=== PATIENT | male | born 1995 | race American Indian/Alaskan Native ===

== ENCOUNTER 2018-09-20 02:12 | Emergency (ER) | payer SELFPAY ==
[2018-09-20 02:23] VITALS: BP 151/92; PULSE 96; RESP 18; TEMP 36.4; O2SAT 70
[2018-09-20] MEDS: SODIUM CHLORIDE 0.9% 1,000 ML 1000 ML IV (03:00)
[2018-09-20] MEDS: ONDANSETRON 4 MG/2 ML INJ IV (03:00)
[2018-09-20] MEDS: KETOROLAC 60 MG/2 ML VIAL 15 MG IV (03:01)
[2018-09-20 03:12] LABS: Add Manual Diff / Slide Review NO; Basophils Percent Auto 0.3 % (0-2); Hematocrit 40.5 % (41-53); Hemoglobin 13.8 g/dL (13.5-17.5); Mean Corpuscular HGB Conc 34.1 % (30-36); Mean Corpuscular Hemoglobin 28.1 PG (26-34); Mean Corpuscular Volume 82.5 fL (80-100); Neutrophils Absolute Auto 8100 /uL (3000-5900); Neutrophils Percent Auto 88.7 % (50-75); Platelet Count 254 X10^3/uL (150-400); Red Blood Cell Count 4.91 X10^6/uL (4.5-5.9); Red Cell Distribution Width 14.2 % (11.6-14.8); White Blood Cell Count 9.1 X10^3/uL (4.5-11.0)
[2018-09-20 03:13] LABS: Acetaminophen < 10 ug/mL (10-30)
[2018-09-20 03:20] LABS: Alanine Aminotransferase 34 IU/L (21-72); Albumin Globulin Ratio 1.8 (1.0-2.8); Alkaline Phosphatase 121 U/L (38-126); Aspartate Aminotransferase 27 IU/L (17-59); BUN Creatinine Ratio 12.2 (6-22); Bilirubin Total 1.1 mg/dL (0.2-1.3); Blood Urea Nitrogen 11 mg/dL (9-20); Calcium 9.6 mg/dL (8.4-10.2); Carbon Dioxide 26 mmol/L (22-32); Chloride 104 mmol/L (98-107); Estimated Glomerular Filt Rate > 60.0 mL/min (>60); Globulin 2.8 g/dL (1.7-4.1); Glucose 122 mg/dL (70-100); HEMOLYSIS < 15 (0-50); Potassium 4.2 mmol/L (3.4-5.1); Sodium 143 mmol/L (137-145); Total Protein 7.8 g/dL (6.3-8.2)
[2018-09-20 03:22] LABS: Lactate (Lactic Acid) 1.1 mmol/L (0.7-2.1)
[2018-09-20 03:24] LABS: INR 1.2 (0.9-1.3); Prothrombin Time 13.1 SECONDS (10.1-12.7)
[2018-09-20 03:54] VITALS: BP 135/92; PULSE 81; RESP 18; TEMP 36.6; O2SAT 100
--- NOTE | 2018-09-20 05:40 | ED.ABDPAIN ---
HPI - Abdominal Pain General Chief Complaint: Abdominal Pain Stated Complaint: right side tooth pain x2 days Time Seen by Provider: 09/20/18 02:20 Source: patient Mode of arrival: ambulatory Limitations: no limitations History of Present Illness HPI narrative: 23-year-old nonsmoker presents to the emergency department the chief complaint dental pain for the past day or 2. He denies any facial swelling nor fever or chills. He denies any drainage. He does state that over the course the days pain with sufficient to require the ingestion of between 8 and 10 extra-strength Tylenol. He took the 1st 2 pills at about 10:00 a.m. and the rest prescribed over the day. Additionally he took 1 ciprofloxacin was left over from a prior infection and in the aftermath began developing nausea and vomiting. He denies any other coingestion. He denies any desire to hurt himself. He states he only took one or two tylenol yesterday and does not use this medication in an ongoing fashion. MD complaint: abdominal pain Onset (ago): hour(s) Pain Consistency: constant Location: diffuse Severity: moderate Quality: cramping and aching Radiation: none Migration to: no migration Relieving factors: nothing Exacerbating factors: nothing Associated symptoms: nausea and vomiting Related Data Previous Rx's Medication Instructions Recorded ketorolac 10 mg PO Q6H PRN 2 Days tab 09/20/18 ondansetron 4 mg PO TID-QID PRN #10 tab 09/20/18 Allergies Allergy/AdvReac Type Severity Reaction Status Date / Time No Known Drug Allergies Allergy Verified 09/20/18 02:27 Review of Systems Review of Systems All systems reviewed & are unremarkable except as noted in HPI and below Constitutional Denies chills, Denies fever(s), Denies lethargy and Denies weakness Eyes Denies change in vision, Denies eye discharge, Denies irritation and Denies loss of vision ENT Ears, Nose, Mouth, and Throat: Denies change in voice, Denies neck pain and Denies sore throat Cardiovascular Denies chest pain, Denies irregular heart rhythm, Denies lightheadedness, Denies palpitations, Denies dyspnea, Denies dyspnea on exertion and Denies orthopnea Respiratory Denies cough, Denies dyspnea, Denies dyspnea on exertion and Denies wheezing Gastrointestinal Gastrointestinal: Reports abdominal pain, Denies change in bowel habits, Denies diarrhea, Reports nausea and Reports vomiting Genitourinary Denies hematuria, Denies flank pain, Denies urinary incontinence and Denies urinary urgency Musculoskeletal Denies neck pain Integumentary/Breasts Denies pruritus, Denies erythema, Denies rash and Denies wounds Neurologic Denies confusion, Denies loss of vision and Denies weakness Psychiatric Denies anxiety, Denies confusion, Denies depression, Denies homicidal ideation and Denies suicidal ideation Endocrine Denies palpitations Hematologic/Lymphatic Denies easy bruising Allergic/Immunologic Denies wheezing [facility] Social History Smoking Status: Never smoker Exam Narrative Exam Narrative: GENERAL: Pleasant 23-year-old male actively vomiting HEAD: Atraumatic. Normocephalic. No temporal or scalp tenderness. EYES: Pupils equal round and reactive. Extraocular motions intact. No scleral icterus. No injection or drainage. ENT: Nose without bleeding, purulent drainage or septal hematoma. Throat without erythema, tonsillar hypertrophy or exudate. Uvula midline. Airway patent. NECK: Trachea midline. No JVD or lymphadenopathy. Supple, nontender, no meningeal signs. CARDIOVASCULAR: Regular rate and rhythm without murmurs, gallops, or rubs. RESPIRATORY: Clear to auscultation. Breath sounds equal bilaterally. No wheezes, rales, or rhonchi. GASTROINTESTINAL: Abdomen soft, non-tender, nondistended. No hepato-splenomegaly, or palpable masses. No guarding. EXTREMITIES: No clubbing, cyanosis, or edema. No joint tenderness, effusion, or edema noted. BACK: Nontender without deformity or crepitance. No flank tenderness. NEURO: AOx3. SKIN: No rash or erythema. Initial Vital Signs Initial Vital Signs: Vital Signs Temperature 97.5 F L 09/20/18 02:23 Pulse Rate 96 H 09/20/18 02:23 Respiratory Rate 18 09/20/18 02:23 Blood Pressure 151/92 H 09/20/18 02:23 Pulse Oximetry 70 L 09/20/18 02:23 Course Orders Ordered: ED Orders 09/20/18 02:54 Acetaminophen Stat Complete Blood Count AUTO DIFF Stat Comprehensive Metabolic Panel Stat Prothrombin Time INR Stat 09/20/18 03:04 Lactate (Lactic Acid) Stat Discontinued Medications Sodium Chloride (Normal Saline 0.9%) 1,000 mls @ 1,000 mls/hr IV BOLUS ONE Stop: 09/20/18 03:27 Last Infusion: 09/20/18 03:54 Dose: 0 mls/hr Admin: 09/20/18 03:00 Dose: 1,000 mls/hr Ketorolac Tromethamine (Toradol) 15 mg IV NOW ONE Stop: 09/20/18 02:52 Last Admin: 09/20/18 03:01 Dose: 15 mg Ondansetron HCl (Zofran) 4 mg IV NOW ONE Stop: 09/20/18 02:29 Last Admin: 09/20/18 03:00 Dose: 4 mg Consultations Consultation #1: call to Poison Control. Patient very unlikely to require anything but supportive care as he barely eclipses total allowed daily amount Vital Signs - 8 hr 09/20/18 02:23 09/20/18 03:54 Temperature 97.5 F L 97.9 F Pulse Rate 96 H 81 Respiratory Rate 18 18 Blood Pressure 151/92 H 135/92 H Pulse Oximetry 70 L 100 MDM - Abdominal Pain Differential Diagnosis Differential diagnosis: Likely abdominal pain Lab Data Result diagrams: 09/20/18 02:54 09/20/18 02:54 Lab Results 09/20/18 09/20/18 09/20/18 Range/Units 02:54 02:54 02:54 WBC 9.1 (4.5-11.0) X10^3/uL RBC 4.91 (4.5-5.9) X10^6/uL Hgb 13.8 (13.5-17.5) g/dL Hct 40.5 L (41-53) % MCV 82.5 (80-100) fL MCH 28.1 (26-34) PG MCHC 34.1 (30-36) % RDW 14.2 (11.6-14.8) % Plt Count 254 (150-400) X10^3/uL Neut % (Auto) 88.7 H (50-75) % Lymph % (Auto) 7.0 L (25-40) % [place] % (Auto) 4.0 (3-14) % Eos % (Auto) 0.0 L (2-4) % Baso % (Auto) 0.3 (0-2) % Neut # (Auto) 8100 H (9233-6383) /uL PT 13.1 H (10.1-12.7) SECONDS INR 1.2 (0.9-1.3) Sodium (137-145) mmol/L Potassium (3.4-5.1) mmol/L Chloride (98-107) mmol/L Carbon Dioxide (22-32) mmol/L BUN (9-20) mg/dL Creatinine (0.66-1.25) mg/dL Estimated GFR (>60) mL/min BUN/Creatinine Ratio (6-22) Glucose (70-100) mg/dL Lactate (0.7-2.1) mmol/L Calcium (8.4-10.2) mg/dL Total Bilirubin (0.2-1.3) mg/dL AST (17-59) IU/L ALT (21-72) IU/L Alkaline Phosphatase (38-126) U/L Total Protein (6.3-8.2) g/dL Albumin (3.5-5.0) g/dL Globulin (1.7-4.1) g/dL Albumin/Globulin Ratio (1.0-2.8) Acetaminophen < 10 L (10-30) ug/mL 09/20/18 09/20/18 Range/Units 02:54 03:04 WBC (4.5-11.0) X10^3/uL RBC (4.5-5.9) X10^6/uL Hgb (13.5-17.5) g/dL Hct (41-53) % MCV (80-100) fL MCH (26-34) PG MCHC (30-36) % RDW (11.6-14.8) % Plt Count (150-400) X10^3/uL Neut % (Auto) (50-75) % Lymph % (Auto) (25-40) % [place] % (Auto) (3-14) % Eos % (Auto) (2-4) % Baso % (Auto) (0-2) % Neut # (Auto) (8827-4306) /uL PT (10.1-12.7) SECONDS INR (0.9-1.3) Sodium 143 (137-145) mmol/L Potassium 4.2 (3.4-5.1) mmol/L Chloride 104 (98-107) mmol/L Carbon Dioxide 26 (22-32) mmol/L BUN 11 (9-20) mg/dL Creatinine 0.90 (0.66-1.25) mg/dL Estimated GFR > 60.0 (>60) mL/min BUN/Creatinine Ratio 12.2 (6-22) Glucose 122 H (70-100) mg/dL Lactate 1.1 (0.7-2.1) mmol/L Calcium 9.6 (8.4-10.2) mg/dL Total Bilirubin 1.1 (0.2-1.3) mg/dL AST 27 (17-59) IU/L ALT 34 (21-72) IU/L Alkaline Phosphatase 121 (38-126) U/L Total Protein 7.8 (6.3-8.2) g/dL Albumin 5.0 (3.5-5.0) g/dL Globulin 2.8 (1.7-4.1) g/dL Albumin/Globulin Ratio 1.8 (1.0-2.8) Acetaminophen (10-30) ug/mL MDM Narrative Medical decision making narrative: Patient presents with significant dental pain in the absence obvious signs of infection since his abscess or facial swelling. He denies any fever or chills. He took over the daily recommended dose of Tylenol but has normal see him if in levels and liver enzymes. Dental block offered but patient refused Discharge Plan Departure Patient Disposition: Home Clinical Impression: Pain, dental, Accidental acetaminophen overdose Discharge Date/Time: 09/20/18 03:55 Interventions: ED Discharge Assessment Last Done: 09/20/18 03:54 Instructions: DI for Dental Pain Activity Restrictions/Additional Instructions: There is no evidence of an emergent or life threatening illness at this time, but follow up with your doctor in 1-2 days is recommended nonetheless to continue to rule out serious underlying causes of your symptoms. Please call the office for an appointment. Please return to the Emergency Department for any worsening or persistent symptoms. Please take medications as directed. Prescriptions: New ondansetron 4 mg tablet,disintegrating 4 mg PO TID-QID PRN (Reason: nausea and vomiting) Qty: 10 RF: 0 ketorolac 10 mg tablet 10 mg PO Q6H PRN (Reason: pain) 2 Days RF: 0
== END 2018-09-20 03:55 | disposition home or self-care (01) ==
PROVIDERS: Emergency Provider Emergency Medicine
DX: K08.89 Other specified disorders of teeth and supporting structures (principal); T39.1X1A Poisoning by 4-Aminophenol derivatives, accidental (unintentional), initial encounter
CPT/HCPCS: 36415; 36591; 80053; 80329; 83605; 85025; 85610; 96361; 96374; 96375; 99283; 99284; G0480; J1885; J2405

== ENCOUNTER 2018-11-04 15:39 | Emergency (ER) | payer SELFPAY ==
[2018-11-04 15:44] VITALS: BP 140/95; PULSE 79; RESP 18; TEMP 36.7; O2SAT 96
--- NOTE | 2018-11-04 16:36 | ED_ITS ---
HPI - Dental/Oral <Livier Gerber PA-C - Last Filed: 11/04/18 22:21> General Chief complaint: Dental/Oral Stated complaint: Swollen jaw Time Seen by Provider: 11/04/18 16:49 Source: patient Mode of arrival: ambulatory Limitations: no limitations History of Present Illness HPI Narrative: This 23-year-old male comes back due to recurrent dental pain. He states this is in the right 1st and 2nd molars inferiorly. He states that he had a crack repaired in these teeth last year, did okay for a while, but for some months has had persistent pain, then today the area seemed swollen and he thought a tiny bit of pus drained when he pushed on it this morning. He states that he has not had earache, sinus pain or other upper respiratory symptoms such as cough recently. He has not had any fever. He denies any other new complaints on systems review Related Data Previous Rx's Medication Instructions Recorded amoxicillin-pot clavulanate 1 tab PO Q12H #14 tab 11/04/18 [Augmentin] Allergies Allergy/AdvReac Type Severity Reaction Status Date / Time No Known Drug Allergies Allergy Verified 09/20/18 02:27 Review of Systems <Livier Gerber PA-C - Last Filed: 11/04/18 22:21> Review of Systems All systems reviewed & are unremarkable except as noted in HPI and below Exam <Livier Gerber PA-C - Last Filed: 11/04/18 22:21> Initial Vital Signs Initial Vital Signs: Vital Signs Temperature 98.1 F 11/04/18 15:44 Pulse Rate 79 11/04/18 15:44 Respiratory Rate 18 11/04/18 15:44 Blood Pressure 140/95 H 11/04/18 15:44 Pulse Oximetry 96 11/04/18 15:44 GENERAL APPEARANCE: Patient sitting comfortably, in no distress. HEAD: No sinus TTP. EYES: PERRL, EOMI. EARS: Normal auditory canals, TMS intact with normal light reflexes. ORAL CAVITY: Poor dentition, there is tenderness, mild edema and erythema along the labial surface of the right lower 1st and 2nd molars, no drainage. No tenderness or tissue changes elsewhere. THROAT: Clear. NECK/THYROID: Neck supple, full range of motion, no cervical lymphadenopathy. LUNGS: Clear to auscultation bilaterally, clear to percussion, no cough on exam. HEART: RRR without murmur, nl S1, S2, no S3 or S4. <DO Clarissa Alford Last Filed: 11/08/18 08:13> Initial Vital Signs Initial Vital Signs: Vital Signs Temperature 98.1 F 11/04/18 15:44 Pulse Rate 79 11/04/18 15:44 Respiratory Rate 18 11/04/18 15:44 Blood Pressure 140/95 H 11/04/18 15:44 Pulse Oximetry 96 11/04/18 15:44 Course <Livier Gerber PA-C - Last Filed: 11/04/18 22:21> Vital Signs - 8 hr 11/04/18 15:44 11/04/18 17:11 Temperature 98.1 F Pulse Rate 79 83 Respiratory Rate 18 18 Blood Pressure 140/95 H 136/89 Pulse Oximetry 96 97 <Shea Thrasher DO - Last Filed: 11/08/18 08:13> Vital Signs - 8 hr 11/04/18 15:44 11/04/18 17:11 Temperature 98.1 F Pulse Rate 79 83 Respiratory Rate 18 18 Blood Pressure 140/95 H 136/89 Pulse Oximetry 96 97 Discharge Plan Departure Patient Disposition: Home Clinical Impression: Gingival abscess, Chronic dental pain Discharge Date/Time: 11/04/18 17:11 Interventions: ED Discharge Assessment Last Done: 11/04/18 17:11 Instructions: DI for Tooth Abscess, DI for Dental Pain Activity Restrictions/Additional Instructions: Please call [facility] in [place] as they have free or low-cost dentists available. Please make sure you call tomorrow and let them know you were seen in the emergency room and that we have referred you. In the interim, please use ibuprofen 800 mg every 8 hr to help with pain and inflammation, and you can add Tylenol and also [id number] Orajel as needed. I have sent the antibiotic prescription to [facility] for you. Please return if you have severe swelling, new fever, or other acutely worsening symptoms in the interim Prescriptions: New amoxicillin-pot clavulanate [Augmentin] 875-125 mg tablet 1 tab PO Q12H Qty: 14 RF: 0 Referrals: [facility], [facility] [Other] <Shea Thrasher DO - Last Filed: 11/08/18 08:13> Cosign ED Attending Cosignature Attestation: I was immediately available in the department for consultation. Documentation has been reviewed. I agree with assessment and plan.
--- NOTE | 2018-11-04 16:55 | PC.NURSE ---
Patient had a cracked bottom right side molar, which was repaired 4 months ago. Was prescribed antibiotics after the procedure, but forgot them in [place]. Approx 2-3 days ago, noted swelling on the right jaw.
[2018-11-04 17:11] VITALS: BP 136/89; PULSE 83; RESP 18; O2SAT 97
== END 2018-11-04 17:11 | disposition home or self-care (01) ==
PROVIDERS: Emergency Provider Internal Medicine
DX: K05.219 Aggressive periodontitis, localized, unspecified severity (principal); K08.9 Disorder of teeth and supporting structures, unspecified
CPT/HCPCS: 99282

== ENCOUNTER 2020-01-20 21:10 | Emergency (ER) | payer SELFPAY ==
[2020-01-20 21:18] VITALS: BP 152/100; PULSE 97; RESP 93; TEMP 36.9; O2SAT 97
[2020-01-20 21:40] VITALS: BP 140/99; PULSE 95; RESP 16
--- NOTE | 2020-01-20 22:20 | ED_ITS ---
HPI - Nausea/Vomiting/Diarrhea General Chief complaint: Nausea/Vomiting/Diarrhea Stated complaint: AFTER EATING DRY HEAVING MUCUSY IN THE CHEST Time Seen by Provider: 01/20/20 22:20 Source: patient Mode of arrival: Family Vehicle Limitations: no limitations History of Present Illness HPI Narrative: This a 24-year-old male comes to the emergency department with complaint of vomiting and epigastric pain/chest pain that has been present for 2-3 days. Patient states no fevers, has felt nauseated. He has had the dry heaves. He has not really been eating food. He does been able to keep some fluids down. He denies any diarrhea constipation states he has had normal bowel movements and they have not been black or bloody. He has not had any decrease in urine output, frequency dysuria urgency and no dark urine. He denies any fevers. He denies any cough cold or congestion. He states he feels short of breath right after he vomits. He denies any other medical issues, states he has not had similar symptoms in the past. He states that food does seem to exacerbate his symptoms. And it typically starts a short period of time after trying eat. No prior surgeries, no allergies, no tobacco or alcohol. He does use marijuana but denies any other illicit. He is accompanied by his girlfriend. Related Data Previous Rx's Medication Instructions Recorded amoxicillin-pot clavulanate 1 tab PO Q12H #14 tab 11/04/18 [Augmentin] esomeprazole magnesium [Nexium] 40 mg PO DAILY #20 cap 01/21/20 Allergies Allergy/AdvReac Type Severity Reaction Status Date / Time No Known Drug Allergies Allergy Verified 09/20/18 02:27 Review of Systems Review of Systems ROS Unobtainable: All systems reviewed & are unremarkable except as noted in HPI and below Patient History Medical History Healthy adult male (Chronic) Social History Smoking Status: Never smoker Smoking Status: Never smoker alcohol intake frequency: 0-2 drinks per day Substance Use Type: marijuana Exam Narrative Exam Narrative: GENERAL: Alert and oriented x three, male, mild distress. HEENT: Head normocephalic, atraumatic, EOMI, pupils reactive, face symmetric, mi ldly dry mucous membranes NECK: Supple, full range of motion CARDIOVASCULAR: Regular rate and rhythm without murmurs, rubs or gallops. Rashes or skin changes. RESPIRATORY: Breath sounds equal bilaterally, no wheezes rales or rhonchi. ABDOMEN: Soft, nontender. Normoactive bowel sounds all 4 quadrants. No guarding or rebound, rigidity, no mass : No CVA tenderness EXTREMITIES: Normal range of motion, no clubbing or edema. Neurovascularly intact NEUROLOGICAL: Cranial nerves II through XII grossly intact. Moving all extremities SKIN: Warm, dry, no petechiae, no rashes or lesions. Initial Vital Signs Initial Vital Signs: Vital Signs Temperature 98.5 F 01/20/20 21:18 Pulse Rate 97 H 01/20/20 21:18 Respiratory Rate 93 H 01/20/20 21:18 Blood Pressure 152/100 H 01/20/20 21:18 Pulse Oximetry 97 01/20/20 21:18 Course Orders Ordered: ED Orders 01/20/20 21:24 EKG-12 Lead Stat 01/20/20 22:10 Complete Blood Count AUTO DIFF Stat Comprehensive Metabolic Panel Stat Lipase Stat 01/20/20 22:51 XR acute abdomen series Stat 01/21/20 00:24 Urinalysis and Microscopic Stat Discontinued Medications Sodium Chloride (Normal Saline 0.9%) 1,000 mls @ 1,000 mls/hr IV BOLUS ONE Stop: 01/20/20 23:50 Last Infusion: 01/21/20 01:00 Dose: 1,000 mls/hr Documented by: Admin: 01/20/20 23:20 Dose: 1,000 mls/hr Documented by: CTRGLORIA Ondansetron HCl (Zofran) 4 mg IV NOW ONE Stop: 01/20/20 22:52 Last Admin: 01/20/20 23:20 Dose: 4 mg Documented by: CTRGLORIA Ondansetron HCl (Zofran Odt Prepack) 1 bottle MISC SEEINSTR ONE Stop: 01/21/20 00:39 Last Admin: 01/21/20 00:48 Dose: 1 bottle Documented by: DEDRICK Vital Signs Vital signs: Vital Signs - 8 hr 01/20/20 21:18 01/20/20 21:40 01/20/20 22:45 Temperature 98.5 F Pulse Rate 97 H 95 H 71 Respiratory Rate 93 H 16 14 Blood Pressure 152/100 H Blood Pressure [Right Arm] 140/99 H 145/100 H Pulse Oximetry 97 99 01/21/20 00:00 01/21/20 00:53 Temperature 97.7 F 98.0 F Pulse Rate 71 77 Respiratory Rate 20 16 Blood Pressure 165/93 H Blood Pressure [Right Arm] 158/98 H Pulse Oximetry 99 100 MDM - Nausea/Vomiting/Diarrhea Lab Data Attestation: I reviewed the patient's lab results. Result diagrams: 01/20/20 22:10 01/20/20 22:10 Labs: Lab Results 01/20/20 01/20/20 01/20/20 Range/Units 22:10 22:10 23:00 WBC 7.3 (4.5-11.0) X10^3/uL RBC 5.79 (4.5-5.9) X10^6/uL Hgb 16.1 (13.5-17.5) g/dL Hct 48.0 (41-53) % MCV 82.8 (80-100) fL MCH 27.9 (26-34) PG MCHC 33.7 (30-36) % RDW 14.2 (11.6-14.8) % Plt Count 258 (150-400) X10^3/uL Neut % (Auto) 51.8 (50-75) % Lymph % (Auto) 34.3 (25-40) % [place] % (Auto) 11.7 (3-14) % Eos % (Auto) 1.3 L (2-4) % Baso % (Auto) 0.9 (0-2) % Neut # (Auto) 3800 (1573-3242) /uL Lymph # (Auto) 2500 (3170-9378) /uL [place] # (Auto) 800 (0-900) /uL Eos # (Auto) 100 (0-450) /uL Baso # (Auto) 100 (0-100) /uL Sodium 141 (137-145) mmol/L Potassium 3.9 (3.4-5.1) mmol/L Chloride 106 (98-107) mmol/L Carbon Dioxide 27 (22-32) mmol/L BUN 11 (9-20) mg/dL Creatinine 0.85 (0.66-1.25) mg/dL Estimated GFR > 60.0 (>60) mL/min BUN/Creatinine Ratio 12.9 (6-22) Glucose 104 H (70-100) mg/dL Calcium 10.0 (8.4-10.2) mg/dL Total Bilirubin 1.0 (0.2-1.3) mg/dL AST 29 (17-59) IU/L ALT 29 (<50) IU/L Alkaline Phosphatase 138 H (38-126) U/L Total Protein 9.3 H (6.3-8.2) g/dL Albumin 5.3 H (3.5-5.0) g/dL Globulin 4.0 (1.7-4.1) g/dL Albumin/Globulin Ratio 1.3 (1.0-2.8) Lipase 200 (23-300) U/L Urine Color Dark yellow Urine Appearance Clear Urine pH 6.5 (4.5-8.0) Ur Specific [place] 1.020 (1.000-1.035) Urine Protein Negative (Negative) Urine Glucose (UA) Negative (Negative) g/dL Urine Ketones Negative (NEGATIVE) Urine Occult Blood Negative (Negative) Urine Nitrate Negative (Negative) Urine Bilirubin Negative (NEGATIVE) Urine Urobilinogen 0.2 (0.2) E.U./dL Ur Leukocyte Esterase Negative (NEGATIVE) Urine RBC 0-1/hpf (0-5/HPF) Urine WBC 0-1/hpf (0-5/HPF) Ur Squamous Epith Cells 0-1 /hpf (0-5/HPF) Amorphous Sediment 1+ Urine Bacteria Occasional (0-1) (None) Urine Mucus 1+ H (Negative) Ur Culture Indicated? Cult not indicated Urine Dip Bedside Urine Glucose Negative Bedside Urine Bilirubin - Negative Bedside Urine Ketone - Negative Urine Specific [place] 1.020 Bedside Urine Occult Blood - Negative Bedside Urine pH 6.0 Bedside Urine Protein +/- 15 Bedside Urine Urobilinogen +/- 1mg Bedside Urine Nitrite - Negative Bedside Urine Leukocytes +/- 15 Esterase Imaging Data acute abd series: Attestation: I personally reviewed and interpreted this imaging study as follows: My Impression: nap, air throughout. ECG Data Attestation: I personally reviewed and interpreted this ECG as follows: Prior ECG tracings: not available for review Interpretation: Sinus rhythm right axis, rate 81 WA 142 QRS 82 and QTC of 401. ST elevation appreciated. No depression. MDM Narrative Medical decision making narrative: Patient's x-ray shows air throughout without any obstructive changes. Patient's EKG shows no acute process. CBC shows normal white count with no changes to hematocrit her hemoglobin and normal platelets. Patient's electrolytes are normal, glucose is 104 with normal LFTs except for alk-phos is 138 and normal lipase. Patient states that he is feeling better after the Zofran. His vital signs show a little bit of hypertension, heart rate is in the 70s after fluid. Discussed with patient my suspicion for cardiac cause is low, he is nontender so ultrasound was not ordered for his abdomen or right upper quadrant. Patient's alk-phos is slightly elevated but otherwise normal LFTs. We did discuss potential for ulcer as a cause of his symptoms versus other causes. Plan to give him a prepack of Zofran and have him start a PPI for course of time to see if this improves his symptoms. Discharge Plan Departure Patient Disposition: Home Clinical Impression: Atypical chest pain Vomiting Qualifiers: Vomiting type: unspecified Vomiting Intractability: non-intractable Nausea presence: with nausea Qualified Code(s): R11.2 - Nausea with vomiting, unspecified Discharge Date/Time: 01/21/20 00:53 Instructions: DI for Vomiting -- Adult Activity Restrictions/Additional Instructions: You may take Zofran 1 tablet every 6 hours as needed for nausea. You may slowly advanced your diet with clear liquids starting in the morning if you tolerate this for several hours you may start to advance more solid foods. I would recommend taking a PPI once daily for the next 2 weeks to see if this improves your symptoms. Prescription was sent to [place] [facility]. Return to the ER for fevers, lightheadedness or passing out, new or worsening chest pain, shortness of breath, abdominal pain, persistent vomiting, black or bloody stools or new or concerning symptoms Prescriptions: New esomeprazole magnesium [Nexium] 40 mg capsule,delayed release(DR/EC) 40 mg PO DAILY Qty: 20 RF: 0 No Action amoxicillin-pot clavulanate [Augmentin] 875-125 mg tablet 1 tab PO Q12H Qty: 14 RF: 0
[2020-01-20 22:45] VITALS: BP 145/100; PULSE 71; RESP 14; O2SAT 99
--- NOTE | 2020-01-20 22:51 | DI.RAD.S_ITS ---
PROCEDURE: XR ACUTE ABDOMEN SERIES INDICATIONS: vomiting, epigastric pain. TECHNIQUE: One view chest and two views of the abdomen were acquired. COMPARISON: None. FINDINGS: Surgical changes and devices: None. Chest: Lungs are abnormal with very large lung volumes. Heart size is normal. No pleural effusions. No pneumoperitoneum. Abdomen: Bowel gas pattern is normal. No suspicious calcifications. Visualized solid organ contours appear normal. Bones: No suspicious bony lesions. IMPRESSION: Large lung volumes, with no sign of intestinal obstruction or perforation. Dictated by: Kurt Badillo M.D. on 01/21/2020 at 9:02 Approved by: Kurt Badillo M.D. on 01/21/2020 at 9:04
[2020-01-20] MEDS: SODIUM CHLORIDE 0.9% 1,000 ML 1000 ML IV (23:20)
[2020-01-20] MEDS: ONDANSETRON 4 MG/2 ML INJ IV (23:20)
[2020-01-20 23:40] LABS: Add Manual Diff / Slide Review NO; Basophils Absolute Auto 100 /uL (0-100); Basophils Percent Auto 0.9 % (0-2); Eosinophils Absolute Auto 100 /uL (0-450); Eosinophils Percent Auto 1.3 % (2-4); Hemoglobin 16.1 g/dL (13.5-17.5); Lymphocytes Absolute Auto 2500 /uL (1100-4500); Lymphocytes Percent Auto 34.3 % (25-40); Mean Corpuscular HGB Conc 33.7 % (30-36); Mean Corpuscular Hemoglobin 27.9 PG (26-34); Mean Corpuscular Volume 82.8 fL (80-100); Monocytes Absolute Auto 800 /uL (0-900); Monocytes Percent Auto 11.7 % (3-14); Neutrophils Absolute Auto 3800 /uL (1500-7000); Neutrophils Percent Auto 51.8 % (50-75); Platelet Count 258 X10^3/uL (150-400); Red Blood Cell Count 5.79 X10^6/uL (4.5-5.9); Red Cell Distribution Width 14.2 % (11.6-14.8); White Blood Cell Count 7.3 X10^3/uL (4.5-11.0)
[2020-01-20 23:45] LABS: Alanine Aminotransferase 29 IU/L (<50); Albumin 5.3 g/dL (3.5-5.0); Albumin Globulin Ratio 1.3 (1.0-2.8); Alkaline Phosphatase 138 U/L (38-126); Aspartate Aminotransferase 29 IU/L (17-59); BUN Creatinine Ratio 12.9 (6-22); Blood Urea Nitrogen 11 mg/dL (9-20); Carbon Dioxide 27 mmol/L (22-32); Chloride 106 mmol/L (98-107); Estimated Glomerular Filt Rate > 60.0 mL/min (>60); Glucose 104 mg/dL (70-100); HEMOLYSIS < 15 (0-50); Lipase 200 U/L (23-300); Potassium 3.9 mmol/L (3.4-5.1); Sodium 141 mmol/L (137-145); Total Protein 9.3 g/dL (6.3-8.2)
[2020-01-21] VITALS: BP 158/98; PULSE 71; RESP 20; TEMP 36.5; O2SAT 99
[2020-01-21 00:32] LABS: Appearance Urine UA CLEAR; Bilirubin Urine UA NEGATIVE (NEGATIVE); Glucose Urine UA NEGATIVE (Negative); Ketones Urine UA NEGATIVE (NEGATIVE); Leukocyte Esterase Urine UA NEGATIVE (NEGATIVE); Nitrite Urine UA NEGATIVE (Negative); Occult Blood Urine UA NEGATIVE (Negative); Protein Urine UA NEGATIVE (Negative); Urobilinogen Urine UA 0.2 E.U./dL (0.2); pH Urine UA 6.5 (4.5-8.0)
[2020-01-21 00:33] LABS: Color Urine UA Dark Yellow
[2020-01-21 00:34] LABS: Amorphous Sediment Urine 1+; Bacteria Urine Occasional (0-1); Mucus Urine 1+ (Negative); Squamous Epithelial Cell Urine 0-1 /HPF (0-5/HPF); WBC Urine 0-1/HPF (0-5/HPF)
[2020-01-21 00:37] LABS: Culture Indicated Urine Cult Not Indicated; RBC Urine 0-1/HPF (0-5/HPF)
[2020-01-21] MEDS: ONDANSETRON 4 MG ODT PREPACK 1 BOTTLE MISC (00:48)
[2020-01-21 00:53] VITALS: BP 165/93; PULSE 77; RESP 16; TEMP 36.7; O2SAT 100
== END 2020-01-21 00:53 | disposition home or self-care (01) ==
PROVIDERS: Emergency Provider Emergency Medicine
DX: R07.89 Other chest pain (principal); R11.2 Nausea with vomiting, unspecified; I10 Essential (primary) hypertension; R10.13 Epigastric pain
CPT/HCPCS: 36415; 74022; 80053; 81001; 81003; 83690; 85025; 93005; 96361; 96374; 99284; J2405

== ENCOUNTER 2022-04-10 07:19 | Emergency (ER) | payer SELFPAY ==
[2022-04-10 08:10] VITALS: BP 159/115; PULSE 74; RESP 16; TEMP 36.4; O2SAT 98
--- NOTE | 2022-04-10 09:04 | ED.EYEPROB ---
HPI - Eye Problem General Chief complaint: Eye Problems Stated complaint: left eye irritation Time Seen by Provider: 04/10/22 09:03 Source: patient Mode of arrival: Family Vehicle History of Present Illness HPI Narrative: This is a 27-year-old male with left eye irritation slight swelling of the lower lid and some injection for the past 1-2 days. Patient states he did notice his vision is a little blurry on the left with a have him do his visual acuity but had noticed before. He denies any severe eye pain. No pain with movement of his eye. He had some crusting had a small amount drainage this morning at the corner which keeps reoccurring. He denies any prior eye issues. He has seen ophthalmology was before for checkups but does not wear contacts or normally wear glasses he has never had any interventions to his eye. He has never had issues with his eye. He states he is otherwise healthy. Denies daily medications. He is from [place] but is currently living in the [place]. Related Data Previous Rx's Medication Instructions Recorded amoxicillin 875 mg-potassium 1 tab PO Q12H dental infection #14 11/04/18 clavulanate 125 mg tablet tabs (Augmentin) esomeprazole magnesium 40 mg 40 mg PO DAILY #20 caps 01/21/20 capsule,delayed release (Nexium) polymyxin B sulfate 10,000 1 drp EYE-LEFT Q3H 7 days #10 mL 04/10/22 unit-trimethoprim 1 mg/mL eye drops (Polytrim) Allergies Allergy/AdvReac Type Severity Reaction Status Date / Time No Known Drug Allergies Allergy Verified 09/20/18 02:27 Review of Systems Review of Systems ROS Unobtainable: All systems reviewed & are unremarkable except as noted in HPI and below Patient History Medical History (Updated 04/10/22 @ 09:57 by Bre Lewis DO) Healthy adult male Family History Other Family history non-contributory Social History Smoking Status: Never smoker Smoking Status: Never smoker alcohol intake frequency: 0-2 drinks per day Substance Use Type: marijuana Exam Narrative Exam Narrative: GEN: well nourished, well appearing male, alert and oriented x 3, patient appears to be in mild distress. HEENT: Atraumatic, pupils are equal round reactive to light, extraocular movements are intact, nares are clear, TMs are clear with no fluid, there is no conjunctival pallor. Throat is clear without any exudates, erythema, tonsillar enlargement or uvular deviation Visual acuity: right 20/100, left 20/50 without correction. General: no globe trauma Eyelids: normal inspection for some mild swelling of the left lower lid, patient does have small amount of recurrent greenish drainage just at the corner, eyelids everted for exam on left. Conjunctiva/Sclera: normal inspection, no patient's conjunctiva slightly and injected on the left, Corneas: normal inspection, examined with fluroscein on left patient has some punctate uptake in the sclera but none over the cornea. No lacerations or ulcerations noted.. EOM: intact, no palsy/entrapment Pupils: PERRL, normal accomadation, pupil normal Anterior Chambers: normal inspection, no hypema Posterior: normal fundoscopic on bilaterally HEART: Regular rate and rhythm without murmur, clicks, rubs. No carotid bruits, pulses are equal in upper and lower extremities LUNGS:Lungs clear to auscultation, no wheezes, rales, crackles, chest moves symmetrically MSCL: , full range of motion, normal gait NEURO:CN 2-12 intact Initial Vital Signs Initial Vital Signs: Vital Signs Temperature 97.6 F 04/10/22 08:10 Pulse Rate 74 04/10/22 08:10 Respiratory Rate 16 04/10/22 08:10 Blood Pressure 159/115 H 04/10/22 08:10 Pulse Oximetry 98 04/10/22 08:10 Oxygen Delivery Method 04/10/22 08:10 Course Orders Ordered: Discontinued Medications Fluorescein Sodium (Fluorescein 1 Mg Strip) 1 mg EYE-BOTH NOW ONE Stop: 04/10/22 09:39 Last Admin: 04/10/22 10:03 Dose: 1 mg Documented By: LEATHA Proparacaine HCl (Proparacaine 0.5% Ophth Samia) 1 drops EYE-BOTH NOW ONE Stop: 04/10/22 09:05 Last Admin: 04/10/22 10:02 Dose: 1 drop Documented By: LEATHA Vital Signs Vital signs: Vital Signs - 8 hr 04/10/22 08:10 Temperature 97.6 F Pulse Rate 74 Respiratory Rate 16 Blood Pressure 159/115 H Pulse Oximetry 98 Oxygen Delivery Method Room Air MDM - Eye Problem MDM Narrative Medical decision making narrative: This is a 27-year-old male comes with left eye irritation has exam consistent with conjunctivitis no signs of laceration or ulceration. Patient is only mildly discomforted. Patient started on antibiotic eyedrops, return precautions all questions answered. Discharge Plan Departure Patient Disposition: Home Clinical Impression: Bacterial conjunctivitis Instructions: DI for Conjunctivitis Activity Restrictions/Additional Instructions: If you have persistent or worsening symptoms you can follow up with Ophthalmology, referral as below or return here to the emergency department. You can use cool compresses to the affected eye as frequently as you would like. Tylenol and/or ibuprofen are appropriate for any pain control. Use antibiotic eye drops as prescribed. Take these until completed. Prescription sent to [facility] Please return for rapidly worsening vision, increasing drainage, rapidly increasing pain, fevers, redness of swelling around the eye of her face that is spreading, significant decrease in her vision or other new or concerning symptoms Prescriptions: New polymyxin B sulf-trimethoprim [Polytrim] 10,000 unit- 1 mg/mL drops 1 drp EYE-LEFT Q3H 7 Days Qty: 10 0RF No Action amoxicillin-pot clavulanate [Augmentin] 875-125 mg tablet 1 tab PO Q12H Qty: 14 0RF esomeprazole magnesium [Nexium] 40 mg capsule,delayed release(DR/EC) 40 mg PO DAILY Qty: 20 0RF Visit Report Forms: Patient Portal/API
[2022-04-10] MEDS: PROPARACAINE 0.5% OPHTH SOL 1 DROPS EYE-BOTH (10:02)
[2022-04-10] MEDS: FLUORESCEIN 1 MG STRIP EYE-BOTH (10:03)
== END 2022-04-10 10:09 | disposition home or self-care (01) ==
PROVIDERS: Emergency Provider Emergency Medicine
DX: H10.9 Unspecified conjunctivitis (principal)
CPT/HCPCS: 99282

== ENCOUNTER 2023-11-16 23:38 | Emergency (ER) | payer SELFPAY ==
[2023-11-16 23:49] VITALS: BP 154/104; PULSE 55; RESP 17; TEMP 36.6; O2SAT 98; BMI 23.3
--- NOTE | 2023-11-17 00:30 | ED.GENADULT ---
HPI - General Adult General Chief complaint: Eye Problems Stated complaint: R eye irritated and red - eye drops not helping Time Seen by Provider: 11/17/23 00:07 Source: patient Mode of arrival: Ambulatory History of Present Illness HPI narrative: 28-year-old male. Does not wear contacts. Was seen here in the emergency department a couple days ago and diagnosed with conjunctivitis. Was placed on polymyxin eyedrops. He has been on them for just under 48 hours. It states that the irritation in his right eye has continued. It is not worsened but is not improved. He states he feels like there is something in his eye. Has had quite a bit of drainage. He states that his eye was crusted shut this morning. Related Data Previous Rx's Medication Instructions Recorded amoxicillin 875 mg-potassium 1 tab PO Q12H dental infection #14 11/04/18 clavulanate 125 mg tablet tabs (Augmentin) esomeprazole magnesium 40 mg 40 mg PO DAILY #20 caps 01/21/20 capsule,delayed release (Nexium) ciprofloxacin HCl 0.3 % eye drops 2 drp EYE-RIGHT Q6HR 5 days #5 mL 11/17/23 Allergies Allergy/AdvReac Type Severity Reaction Status Date / Time No Known Drug Allergies Allergy Verified 09/20/18 02:27 Review of Systems Constitutional Constitutional: Reports system reviewed and no additional complaints, except as documented Eyes Eyes: Reports system reviewed and no additional complaints, except as documented ENT Ears, Nose, Mouth, and Throat: Reports system reviewed and no additional complaints, except as documented Integumentary/Breasts Skin/Breast: Reports system reviewed and no additional complaints, except as documented Neurologic Neurologic: Reports system reviewed and no additional complaints, except as documented Patient History Medical History Healthy adult male Family History Other Family history non-contributory Social History Smoking Status: Never smoker Smoking Status: Never smoker alcohol intake frequency: 0-2 drinks per day Substance Use Type: marijuana Exam Initial Vital Signs Initial Vital Signs: Vital Signs Temperature 97.9 F 11/16/23 23:49 Pulse Rate 55 L 11/16/23 23:49 Respiratory Rate 17 11/16/23 23:49 Blood Pressure 154/104 H 11/16/23 23:49 Pulse Oximetry 98 11/16/23 23:49 Oxygen Delivery Method Room Air 11/16/23 23:49 Eyes Pupils: PERRL EOM: EOM intact bilaterally Other: Patient does have irritation to the right eye. Fluorescein was used. No ulceration/abrasions noted. No foreign body noted. Does have chemosis. Skin General: no rashes or lesions noted Course Orders Ordered: Discontinued Medications Fluorescein Sodium (Fluorescein 1 Mg Strip) 1 mg EYE-BOTH NOW ONE Stop: 11/17/23 00:11 Last Admin: 11/17/23 00:43 Dose: 1 mg Proparacaine HCl (Proparacaine 0.5% Ophth Samia) 1 drops EYE-LEFT NOW ONE Stop: 11/17/23 00:11 Last Admin: 11/17/23 00:42 Dose: 1 drop Vital Signs Vital signs: Vital Signs - 8 hr 11/16/23 23:49 Temperature 97.9 F Pulse Rate 55 L Respiratory Rate 17 Blood Pressure 154/104 H Pulse Oximetry 98 Oxygen Delivery Method Room Air Medical Decision Making MDM Narrative Medical decision making narrative: Does have symptoms that are consistent with conjunctivitis of the right eye. He has been on the antibiotic drops for just under 48 hours. I did discuss this with the patient. Discussed the possibility that he just has not been on the antibiotics for long enough for them to work. I also discussed the possibility that he needs a different antibiotic. There was no foreign body. No ulceration. Low suspicion for glaucoma based on his risk factors and history and physical. Plan will be to give him a prescription for ciprofloxacin drops. He will hold on this and continue his current antibiotics for the next 24 hours. If his symptoms do not improve that he can switch to the new antibiotics. He was given return precautions. He expressed understanding and agreement. Discharge Plan Departure Patient Disposition: Home Clinical Impression: Conjunctivitis Instructions: Conjunctivitis Activity Restrictions/Additional Instructions: I do recommend that you continue to take your current antibiotics for the next 24 hours. If your symptoms are improving at this time then do not take the new antibiotic that you were prescribed today and continue to take your current 1. If your symptoms are not improving or worsening then stop taking the current antibiotic and start taking the new 1 as directed. Return to the emergency department for new symptoms. Prescriptions: New ciprofloxacin HCl 0.3 % drops 2 drp EYE-RIGHT Q6HR 5 Days Qty: 5 0RF No Action amoxicillin-pot clavulanate [Augmentin] 875-125 mg tablet 1 tab PO Q12H Qty: 14 0RF esomeprazole magnesium [Nexium] 40 mg capsule,delayed release(DR/EC) 40 mg PO DAILY Qty: 20 0RF Stand Alone Forms: Patient Portal/API
[2023-11-17] MEDS: PROPARACAINE 0.5% OPHTH SOL 1 DROPS EYE-LEFT (00:42)
[2023-11-17] MEDS: FLUORESCEIN 1 MG STRIP EYE-BOTH (00:43)
== END 2023-11-17 00:47 | disposition home or self-care (01) ==
PROVIDERS: Emergency Provider Emergency Medicine
DX: H10.9 Unspecified conjunctivitis (principal)
CPT/HCPCS: 99282; 99283

== ENCOUNTER 2024-01-21 15:33 | Emergency (ER) | payer OTHER, SELFPAY ==
[2024-01-21 15:44] VITALS: BP 149/103; PULSE 87; RESP 16; TEMP 36.8; O2SAT 97; BMI 23.3
--- NOTE | 2024-01-21 16:31 | ED_ITS ---
HPI - Eye Problem <Vy Crockett PA-C - Last Filed: 01/21/24 20:41> General Chief complaint: Eye Problems Stated complaint: rt eye bloodshot/puffy Time Seen by Provider: 01/21/24 15:50 Source: patient Mode of arrival: Ambulatory History of Present Illness HPI Narrative: This is a 28-year-old male with history of previous conjunctivitis who presents with concern for right eye irritation and discomfort since early this morning. 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 States he has not having eye pain but woke up in the middle of the night feeling like his eye was uncomfortable and irritated and states that he looked in the mirror and noted that his eye was mildly red looking. He also acknowledges that he feels he has very poor vision on the right side he believes that this has been gradually worsening but he is unsure of the timing. He states that he has blurry vision and notes that he plays golf and has a lot of difficulty seeing the ball when it is out in the distance. He has not seen an eye doctor since pre high school. He states he has never had a prescription for glasses or contacts previously. He is also concerned today that there is very slight swelling or inflammation below his right eye again he states this is not painful but has noticed it since this morning. Denies pain with eye movements, light sensitivity, visual floaters or sudden loss of vision or vision change, headache, or any other symptoms or concerns; he states he has otherwise been in his usual state of health. Related Data Allergies Allergy/AdvReac Type Severity Reaction Status Date / Time No Known Drug Allergies Allergy Verified 01/21/24 15:43 Review of Systems <Vy Crockett PA-C - Last Filed: 01/21/24 20:41> Review of Systems Narrative: See HPI Patient History <Vy Crockett PA-C - Last Filed: 01/21/24 20:41> Medical History Healthy adult male Family History Other Family history non-contributory Social History Smoking Status: Never smoker Smoking Status: Never smoker alcohol intake frequency: 0-2 drinks per day Substance Use Type: marijuana Exam <Vy Crockett PA-C - Last Filed: 01/21/24 20:41> Narrative Exam Narrative: GENERAL: [28] year old patient appears stated age. Well-developed patient, in mild distress. HEAD: Atraumatic. Normocephalic. EYES: Pupils equal round and reactive. Extraocular motions intact. No scleral icterus. There is very subtle right-sided injection without drainage, left eye is noninjected. On limited funduscopic exam without dilation with ophthalmoscope patient appears to have a thick dark irregular appearing stripe that is brown in color, located laterally across the posterior fundus in bilateral eyes. There is no evidence of retinal detachment. After instillation 2 drops of proparacaine in in each eye ocular pressures assessed 17 on the right and 19 on the left. Visual acuity assessed unable to read (0) on the right 20/200 on the left and 20/70 bilaterally ENT: Nose without bleeding, purulent drainage. Throat without erythema, tonsillar hypertrophy or exudate. Airway patent. NECK: Trachea midline. Non tender CARDIOVASCULAR: Regular rate and rhythm without murmurs, gallops, or rubs. RESPIRATORY: Clear to auscultation. Breath sounds equal bilaterally. No wheezes, rales, or rhonchi. EXTREMITIES: No edema or joint tenderness. NEURO: AOx3. SKIN: No rash or erythema of visible areas Initial Vital Signs Initial Vital Signs: Vital Signs Temperature 98.3 F 01/21/24 15:44 Pulse Rate 87 01/21/24 15:44 Respiratory Rate 16 01/21/24 15:44 Blood Pressure 149/103 H 01/21/24 15:44 Pulse Oximetry 97 01/21/24 15:44 Oxygen Delivery Method Room Air 01/21/24 15:44 <Bre Emmanuel MD - Last Filed: 01/23/24 07:17> Initial Vital Signs Initial Vital Signs: Vital Signs Temperature 98.3 F 01/21/24 15:44 Pulse Rate 87 01/21/24 15:44 Respiratory Rate 16 01/21/24 15:44 Blood Pressure 149/103 H 01/21/24 15:44 Pulse Oximetry 97 01/21/24 15:44 Oxygen Delivery Method Room Air 01/21/24 15:44 Course <Vy Crockett PA-C - Last Filed: 01/21/24 20:41> Course Course Narrative: Did talk to attending physician Dr. Emmanuel about this patient given my concern for his significant vision change in the last 2 months and an in ability to read with his right eye currently as well as his funduscopic exam--which is nonspecific but atypical. She recommends reaching out to [facility] to run it by them. Did try calling the eye clinic/composition weatherboard installer here at [facility] unfortunately they are already closed for the day. [address] Bustamante composition weatherboard installer at [facility] regarding this patient and he does feel it is reasonable to have him have close outpatient follow-up ideally in the next week to further evaluate his fairly rapid vision loss. But does not recommend any other emergent care or treatment at this time does recommend lubricating eyedrops 4 times daily. Their clinic will reach out to the patient also in case patient is unable to get into see an composition weatherboard installer locally. We discussed fluorescein exam however this is deferred given patient's eye exam today and no concern for foreign body or corneal abnormality. 1806 Orders Ordered: Discontinued Medications Proparacaine HCl (Proparacaine 0.5% Ophth Samia) 1 drops EYE-BOTH NOW ONE Stop: 01/21/24 16:58 Last Admin: 01/21/24 17:00 Dose: 1 drop Documented By: ESTEFANY Tetracaine HCl (Tetracaine 0.5% Ophth Drops 4 Ml) 2 drops EYE-BOTH NOW ONE Stop: 01/21/24 16:57 Vital Signs Vital signs: Vital Signs - 8 hr 01/21/24 15:44 Temperature 98.3 F Pulse Rate 87 Respiratory Rate 16 Blood Pressure 149/103 H Pulse Oximetry 97 Oxygen Delivery Method Room Air <Bre Emmanuel MD - Last Filed: 01/23/24 07:17> Orders Ordered: Discontinued Medications Proparacaine HCl (Proparacaine 0.5% Ophth Samia) 1 drops EYE-BOTH NOW ONE Stop: 01/21/24 16:58 Last Admin: 01/21/24 17:00 Dose: 1 drop Documented By: RL Tetracaine HCl (Tetracaine 0.5% Ophth Drops 4 Ml) 2 drops EYE-BOTH NOW ONE Stop: 01/21/24 16:57 Vital Signs Vital signs: Vital Signs - 8 hr 01/21/24 15:44 Temperature 98.3 F Pulse Rate 87 Respiratory Rate 16 Blood Pressure 149/103 H Pulse Oximetry 97 Oxygen Delivery Method Room Air MDM - Eye Problem <Vy Crockett PA-C - Last Filed: 01/21/24 20:41> Differential Diagnosis Differential diagnosis: Likely conjunctivitis, acute iritis and other (Rapid vision loss) MDM Narrative Medical decision making narrative: This is a well-appearing 28-year-old male who presents initially with concern for mild right eye redness and right eye irritation since early this morning with no suspicion for foreign body. Initially concern for viral versus allergic conjunctivitis however patient has had a significant loss of vision in the last few months since he was seen in this ER based on his visual acuity at that time and is unable to read at all with the right eye today. He is able to see up close approximately 6 from his face and read at that distance. Interocular pressures were obtained after instillation of proparacaine and within normal limits, limited funduscopic exam w/o dilation was possibly concerning for pigmented region/band across the fundus laterally but this is present in bilate ral eyes, this does not appear to be retinal detachment also not suggestive of cataracts, and after discussion with emergency department attending did consult Ophthalmology at [facility]. They recommend close outpatient ophthalmology follow-up which I agree is reasonable. Also recommend lubricating drops for the eye. His exam and history do not suggest a all etiology. Discussed this with the patient and he is encouraged to follow up closely with Ophthalmology locally or can consider seeing composition weatherboard installer at [facility]. Patient was also noted to be moderately hypertensive in the 150s systolic, did discuss this with the patient and advised him he should probably be monitoring blood pressures and following with primary care regarding this. Advise him that persistent higher blood pressure is can cause problems with the eyes as well. Return precautions provided, follow-up plan discussed, all questions answered. Discharge Plan Departure Patient Disposition: Home Clinical Impression: Vision changes Conjunctivitis Qualifiers: Conjunctivitis type: unspecified Laterality: right Qualified Code(s): H10.9 - Unspecified conjunctivitis Activity Restrictions/Additional Instructions: *You have been diagnosed with [vision change/gradual vision loss, conjunctivitis likely allergic] *What to do: *Please continue to take your regular medications as directed. [ ] New medication prescriptions sent to your pharmacy: [ ] [ ] New medication written as a paper prescription [X ] No new medications given *Please follow up with your primary care provider in 2-3 days, call for an appointment. Let them know you were seen in the Emergency Department and that we ask that you be seen in follow up. We will electronically transmit a record of today's note if your PCP is in our system. Thank you for your patients in the ER today. URI exam was generally looking okay however you did have a pretty significant change in your vision in the last 2 months since you were last seen here and had visual acuity exam done. We checked your ocular pressures today which were in the normal range, and also consulted an composition weatherboard installer, as providers here I want hospital unavailable at this hour we spoke with an composition weatherboard installer in [place] at [facility]. Dr. Bustamante. After discussion he agrees that it is reasonable to have you follow-up as an outpatient with Ophthalmology. Their clinic will give you a call but given the distance definitely makes sense for you to work on getting into be seen locally by ophthalmology in the next week if possible for further evaluation and a more detailed exam. If you are unable to do so the clinic in [place] will be happy to see you and they should be giving you a call in the next few days. I do recommend trying lubricating eyedrops for your eyes, I do not think that there is need for antibiotic at this time. If you do develop new symptoms specifically pain or sudden vision change or other symptoms of concern please make sure you get re-evaluated immediately *If you do not have a primary care provider please contact the [facility] Resource line at [phone]. They will ask some questions about your medical history and help get you set up with a doctor in the community. *Return to Emergency Department if you should have any new, worsening or concerning symptoms, such as [fever greater than 101 F, shaking chills, worsening pain, persistent vomiting or other bothersome symptoms] Referrals: Gunnar Marcelo MD [Physician] - (rapid vision loss over 2 months, normal IOPs, no pain--needs optho eval urgent w/in one week. Consulted [facility]) Stand Alone Forms: Patient Portal/API ED Sign-out <Bre Emmanuel MD - Last Filed: 01/23/24 07:17> Cosign ED Attending Cosignature Attestation: I did not see this patient. I was available all times for consultation.
[2024-01-21] MEDS: PROPARACAINE 0.5% OPHTH SOL 1 DROPS EYE-BOTH (17:00)
== END 2024-01-21 18:22 | disposition home or self-care (01) ==
PROVIDERS: Emergency Provider Student in an Organized Health Care Education/Training Program
DX: H10.9 Unspecified conjunctivitis (principal); H53.9 Unspecified visual disturbance
CPT/HCPCS: 99282

== ENCOUNTER 2024-11-11 16:15 | Emergency (ER) | payer OTHER, SELFPAY ==
[2024-11-11 16:41] VITALS: BP 140/103; PULSE 77; RESP 17; TEMP 37.1; O2SAT 98; BMI 25.1
--- NOTE | 2024-11-11 18:08 | ED_ITS ---
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 No injury or foreign object to the eye. Patient states that his eyes feel dry, feels better with moisturizing drops such as sustained. Patient also reports a white crusty discharge upon awakening. Patient reports sporadic blurry eyes, but no other changes to vision. Patient does not wear contact lenses or eyeglasses. Related Data Previous Rx's Medication Instructions Recorded polymyxin B sulfate 10,000 2 drp EYE-BOTH Q6HR 7 days #10 mL 11/11/24 unit-trimethoprim 1 mg/mL eye drops Allergies Allergy/AdvReac Type Severity Reaction Status Date / Time No Known Drug Allergies Allergy Verified 11/11/24 16:41 Review of Systems <Romulo Paulino PA-C - Last Filed: 11/11/24 18:58> Constitutional Constitutional: Denies chills, Denies fatigue, Denies fever(s), Denies frequent falls, Denies lethargy and Denies weakness Eyes Eyes: Denies change in vision, Denies eye discharge, Reports dry eyes, Reports irritation and Denies loss of vision Comments: White crusty discharge ENT Ears, Nose, Mouth, and Throat: Denies change in voice, Denies dizziness, Denies neck pain, Denies sore throat and Denies throat swelling Cardiovascular Cardiovascular: Denies chest pain, Denies irregular heart rhythm, Denies lightheadedness, Denies palpitations, Denies dyspnea, Denies dyspnea on exertion and Denies orthopnea Respiratory Respiratory: Denies cough, Denies dyspnea, Denies dyspnea on exertion and Denies wheezing Gastrointestinal Gastrointestinal: Denies abdominal pain, Denies change in bowel habits, Denies diarrhea, Denies nausea and Denies vomiting Musculoskeletal Musculoskeletal: Denies neck pain and Denies numbness Integumentary/Breasts Skin/Breast: Denies pruritus, Denies erythema, Denies rash and Denies wounds Neurologic Neurologic: Denies behavioral changes, Denies confusion, Denies dizziness, Denies frequent falls, Denies loss of vision, Denies numbness and Denies weakness Psychiatric Psychiatric: Denies anxiety, Denies behavioral changes, Denies confusion, Denies depression, Denies homicidal ideation and Denies suicidal ideation Endocrine Endocrine: Denies fatigue, Denies flushing and Denies palpitations Hematologic/Lymphatic Hematologic/Lymphatic: Denies easy bruising Allergic/Immunologic Allergic/Immunologic: Denies urticaria, Denies throat swelling and Denies wheezing Patient History <Romulo Paulino PA-C - Last Filed: 11/11/24 18:58> Medical History Healthy adult male Family History Other Family history non-contributory Social History Smoking Status: Never smoker Smoking Status: Never smoker alcohol intake frequency: 0-2 drinks per day Exam <Romulo Paulino PA-C - Last Filed: 11/11/24 18:58> Narrative Exam Narrative: Const General:?cooperative, healthy appearing and comfortable [facility] Head:?normal to inspection Ears:?hearing grossly normal bilaterally Nose:?external nose normal Face and sinus:?normal facial exam and sinuses nontender Mouth:?oral mucosae normal Throat:?posterior oropharynx normal Eyes General:? Bilateral conjunctival injection, no discharge; there are some growths on the white conjunctiva consistent with pinguecula in bilateral eyes; vision is grossly normal Neck Neck:?normal visual inspection and no lymphadenopathy noted Resp Effort & Inspection:?normal respiratory effort Auscultation:?clear to auscultation bilaterally Cardio Rate:?regular rate Rhythm:?regular rhythm Neuro General:?patient alert, patient awake and patient oriented x3 Initial Vital Signs Initial Vital Signs: Vital Signs Temperature 98.8 F 11/11/24 16:41 Pulse Rate 77 11/11/24 16:41 Respiratory Rate 17 11/11/24 16:41 Blood Pressure 140/103 H 11/11/24 16:41 Pulse Oximetry 98 11/11/24 16:41 Oxygen Delivery Method Room Air 11/11/24 16:41 <Reyna Soni MD - Last Filed: 11/12/24 08:36> Initial Vital Signs Initial Vital Signs: Vital Signs Temperature 98.8 F 11/11/24 16:41 Pulse Rate 77 11/11/24 16:41 Respiratory Rate 17 11/11/24 16:41 Blood Pressure 140/103 H 11/11/24 16:41 Pulse Oximetry 98 11/11/24 16:41 Oxygen Delivery Method Room Air 11/11/24 16:41 Course <Romulo Paulino PA-C - Last Filed: 11/11/24 18:58> Vital Signs Vital signs: Vital Signs - 8 hr 11/11/24 16:41 Temperature 98.8 F Pulse Rate 77 Respiratory Rate 17 Blood Pressure 140/103 H Pulse Oximetry 98 Oxygen Delivery Method Room Air <Reyna Soni MD - Last Filed: 11/12/24 08:36> Vital Signs Vital signs: Vital Signs - 8 hr 11/11/24 16:41 Temperature 98.8 F Pulse Rate 77 Respiratory Rate 17 Blood Pressure 140/103 H Pulse Oximetry 98 Oxygen Delivery Method Room Air MDM - Eye Problem <Romulo Paulino PA-C - Last Filed: 11/11/24 18:58> MDM Narrative Medical decision making narrative: 29-year-old male presents to the ED with irritation to bilateral eyes. Patient's presentation is most consistent with bacterial conjunctivitis versus dry eyes vs pinguecula. There also bilateral growths to the whites of the conjunctiva consistent with pinguecula. Prescribed antibiotic eyedrops. Also recommend continuing moisturizing drops for the eyes. Recommend follow-up with ophthalmology as soon as possible for further evaluation. ED return precautions were discussed with patient. Patient verbalized understanding. Medical records reviewed: Yes Discharge Plan Departure Patient Disposition: Home Clinical Impression: Bacterial conjunctivitis Instructions: DI for Conjunctivitis Activity Restrictions/Additional Instructions: You were evaluated in the ED today for eye irritation. It is likely that you have a combination of dry eyes as well as a bacterial infection. You are being prescribed antibiotic eyedrops. You may also continue using sustain or other [id number] eyedrops for dry eye. Please follow-up with an molder pipe covering as soon as possible. You may call [facility] at [phone] to make an appointment. Return to the ED if you have worsening symptoms, vision changes Prescriptions: New polymyxin B sulf-trimethoprim 10,000 unit- 1 mg/mL drops 2 drp EYE-BOTH Q6HR 7 Days Qty: 10 0RF Stand Alone Forms: Patient Portal/API/Survey ED Sign-out <Reyna Soni MD - Last Filed: 11/12/24 08:36> Cosign ED Attending Cosignature Attestation: I was immediately available in the department for consultation throughout this patient's visit. Reyna Soni MD
== END 2024-11-11 18:23 | disposition home or self-care (01) ==
PROVIDERS: Emergency Provider Student in an Organized Health Care Education/Training Program
DX: H10.9 Unspecified conjunctivitis (principal)
CPT/HCPCS: 99281

== ENCOUNTER 2025-09-02 07:50 | Emergency (ER) | payer OTHER, SELFPAY ==
--- NOTE | 2025-09-02 08:03 | ED_ITS ---
HPI - Eye Problem
--- NOTE | 2025-09-02 08:03 | ED.EYEPROB ---
HPI - Eye Problem General Chief complaint: Eye Problems Stated complaint: possible antifreeze in right eye Time Seen by Provider: 09/02/25 07:57 Source: patient, RN notes reviewed and old records reviewed Mode of arrival: Ambulatory Limitations: no limitations History of Present Illness HPI Narrative: 30-year-old male history of hypertension currently untreated who states he got a drop of antifreeze in his right eye yesterday states he irrigated it for about 5 minutes. He states it is slightly irritated and a tearing a little bit today denies any major pain. He states maybe he has a little bit of blurred vision. He notes he is supposed to wear glasses for near vision but does not normally wear them. Patient states he has not had any drainage otherwise. States it is eyes not really painful but more slightly irritated. States tetanus is not currently up-to-date. He denies any other medical problems besides hypertension. He has never had any interventions to his eyes, he does not wear contacts. He has never had any other injuries or issues with a his eyes. Does not use tobacco, occasional alcohol, occasional marijuana no other recreational drugs. Related Data Allergies Allergy/AdvReac Type Severity Reaction Status Date / Time No Known Drug Allergies Allergy Verified 11/11/24 16:41 Review of Systems Review of Systems ROS Unobtainable: All systems reviewed & are unremarkable except as noted in HPI and below Patient History Medical History (Updated 09/02/25 @ 09:12 by Bre Lewis DO) Healthy adult male Family History Other Family history non-contributory Social History Smoking Status: Never smoker alcohol intake frequency: 0-2 drinks per day Exam Narrative Exam Narrative: GEN: well nourished, well appearing male, alert and oriented x 3, patient appears to be in mild distress. HEENT: Atraumatic, pupils are equal round reactive to light, extraocular movements are intact, nares are clear. Throat is clear without any exudates, erythema, tonsillar enlargement or uvular deviation Visual acuity: right and able to perceive letter, left 20/40 without correction. IOP: Right 13 mm Hg, Left 17 mm Hg, pH is 5 General: no globe trauma Eyelids: normal inspection, eyelids everted for exam on right. Conjunctiva/Sclera: normal inspection, no injection Corneas: normal inspection, examined with fluroscein on on the right, patient has some generalized uptake but no ulceration, abrasion appreciated.. EOM: intact, no palsy/entrapment Pupils: PERRL, normal accomadation, pupil normal Anterior Chambers: normal inspection, no hypema Posterior: normal fundoscopic on bilaterally HEART: Regular rate and rhythm without murmur, clicks, rubs. LUNGS:Lungs clear to auscultation, no wheezes, rales, crackles, chest moves symmetrically MSCL: full range of motion, normal gait NEURO:CN 2-12 intact, sensation normal Initial Vital Signs Initial Vital Signs: Vital Signs Temperature 98.6 F 09/02/25 08:08 Pulse Rate 65 09/02/25 08:08 Respiratory Rate 18 09/02/25 08:08 Blood Pressure 143/93 H 09/02/25 08:08 Pulse Oximetry 96 09/02/25 08:08 Oxygen Delivery Method Room Air 09/02/25 08:08 Course Orders Ordered: Discontinued Medications Fluorescein Sodium (Fluorescein 1 Mg Strip) 1 mg EYE-BOTH NOW ONE Stop: 09/02/25 08:03 Last Admin: 09/02/25 09:33 Dose: 1 mg Documented By: CRISTA Proparacaine HCl (Proparacaine 0.5% Ophth Samia) 1 drops EYE-BOTH NOW ONE Stop: 09/02/25 08:03 Last Admin: 09/02/25 09:33 Dose: 1 drop Documented By: CRISTA Vital Signs Vital signs: Vital Signs - 8 hr 09/02/25 08:08 Temperature 98.6 F Pulse Rate 65 Respiratory Rate 18 Blood Pressure 143/93 H Pulse Oximetry 96 Oxygen Delivery Method Room Air MDM - Eye Problem MDM Narrative Medical decision making narrative: 30-year-old male who had antifreeze in his eye yesterday he notes that he did not irrigate it he notes a little bit of blurred vision and irritation. On exam he can not see the largest letter although he is not sure if that is his normal or not he knows his right eye typically has issues. 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 Spoke with ophthalmology, Dr. Barnes she is familiar with the patient he had had prior visits there. She is happy to see him today. Discharge Plan Departure Patient Disposition: Home Clinical Impression: Chemical exposure of eye Instructions: DI for Chemical Eye Burn Activity Restrictions/Additional Instructions: Go to the ophthalmology office, Dr. Barnes is happy to see you today. Stand Alone Forms: Patient Portal/API
[2025-09-02 08:08] VITALS: BP 143/93; PULSE 65; RESP 18; TEMP 37; O2SAT 96; BMI 28.7
[2025-09-02 09:27] VITALS: BP 142/92; PULSE 82; RESP 16; O2SAT 98
[2025-09-02] MEDS: FLUORESCEIN 1 MG STRIP EYE-BOTH (09:33)
[2025-09-02] MEDS: PROPARACAINE 0.5% OPHTH SOL 1 DROPS EYE-BOTH (09:33)
== END 2025-09-02 09:35 | disposition home or self-care (01) ==
PROVIDERS: Emergency Provider Emergency Medicine
DX: H53.8 Other visual disturbances (principal); H57.11 Ocular pain, right eye; Z77.098 Contact with and (suspected) exposure to other hazardous, chiefly nonmedicinal, chemicals
CPT/HCPCS: 99282